=== PATIENT | male | born 1995 | race Caucasian/White ===

== ENCOUNTER 2017-04-05 11:04 | Emergency (ER) | payer BC ==
[~2017-04-05] VITALS: Ht 170.2 cm; Wt 57.2 kg
[2017-04-05 11:16] VITALS: BP 127/69; PULSE 102; RESP 18; TEMP 98.9; O2SAT 98
--- NOTE | 2017-04-05 11:31 | NUR ---
Patient to ER bed 03 to gown for evaluation. Side rails up. Report given to Travis/Kaylin RODRIGUEZ
--- NOTE | 2017-04-05 11:35 | NUR ---
Pt states he came to ER "because the dialysis people said the fistula might be infected". Fistula noted to R upper arm. slightly dark red skin coloration noted on fistula, thrill palpated. Skin non-intact on lower bump of fistula. No active bleeding noted on fistula site. Pt denies any other complaints.
--- NOTE | 2017-04-05 11:36 | NUR ---
ER Dr. Sanchez at bedside examining patient.
[2017-04-05 11:49] LABS: BASOPHILS % (AUTO) 0.4 % (0.0-2.0); CALCIUM 9.1 mg/dL (8.4-11.0); CREATININE 7.44 mg/dL (0.55-1.30); EOSINOPHILS # (AUTO) 0.2 K/uL (0.0-0.4); EOSINOPHILS % (AUTO) 2.7 % (0.0-4.0); HEMATOCRIT 23.9 % (36-54); LYMPHOCYTES # (AUTO) 0.9 K/uL (1.0-5.5); LYMPHOCYTES % (AUTO) 13.7 % (20.5-51.5); MEAN CORPUSCULAR HEMOGLOBIN 32 pg (27-31); MEAN CORPUSCULAR HGB CONC 34 % (32-36); MEAN CORPUSCULAR VOLUME 96 fL (79.0-98.0); MONOCYTES # (AUTO) 0.7 K/uL (0.0-1.0); MONOCYTES % (AUTO) 11.7 % (1.7-9.3); NEUTROPHILS # (AUTO) 4.4 K/uL (1.8-7.7); NEUTROPHILS % (AUTO) 71.5 % (40.0-70.0); PLATELET COUNT (AUTO) 260 K/uL (130-430); POTASSIUM 4.1 mmol/L (3.5-5.1); RED CELL DISTRIBUTION WIDTH 15.5 % (9.0-15.0); WHITE BLOOD COUNT (AUTO) 6.2 K/uL (4.8-10.8)
[2017-04-05 11:52] LABS: INR 1.1 (0.80-1.20); PROTHROMBIN TIME 12.2 SECS (9.5-12.5)
[2017-04-05 11:54] LABS: ALBUMIN 4.1 g/dL (3.4-4.8); TOTAL BILIRUBIN 0.6 mg/dL (0.0-1.0); TOTAL PROTEIN, SERUM 7.5 g/dL (6.4-8.3)
[2017-04-05] MEDS ORDERED: PIPERACILLIN/TAZO 3.375 GM in NS 50 ML IV ONE (12:15)
[2017-04-05] MEDS ORDERED: PIPERACILLIN/TAZOBACTAM 3.375 GM/VIAL (ZOSYN) IV ONE (12:53)
--- NOTE | 2017-04-05 13:00 | NUR ---
Pt stable, no signs of distress noted
--- NOTE | 2017-04-05 15:02 | NUR ---
pt stable, no signs of distress noted
--- NOTE | 2017-04-05 17:00 | NUR ---
pt stable, no signs of distress noted.
--- NOTE | 2017-04-05 18:00 | NUR ---
Pt not allowed to be admitted to floor. Med-surg stated ambulance will not arrive until 1900. Pt stable, no signs of distress noted
[2017-04-05] MEDS ORDERED: CARV25TA55 PO (18:28)
[2017-04-05] MEDS ORDERED: NEPH PO (18:28)
[2017-04-05] MEDS ORDERED: LON10 PO (18:28)
[2017-04-05] MEDS ORDERED: VORT20TA PO (18:28)
[2017-04-05] MEDS ORDERED: LISI-600 PO (18:28)
[2017-04-05] MEDS ORDERED: SODI15OR3 PO (18:28)
[2017-04-05] MEDS ORDERED: LACT10SO66 PO (18:28)
[2017-04-05] MEDS ORDERED: HYDR-4039 PO (18:28)
[2017-04-05] MEDS ORDERED: CLON1PAT10 TD (18:28)
[2017-04-05] MEDS ORDERED: [UNRECOGNIZED DRUG - OTHER] (18:28)
--- NOTE | 2017-04-05 19:00 | NUR ---
ambulance for transfer has not arrived
--- NOTE | 2017-04-05 19:00 | NUR ---
pt stable, no signs of distress noted
--- NOTE | 2017-04-05 19:44 | NUR ---
report given to TOD potts before transfer to other facility
--- NOTE | 2017-04-05 19:58 | NUR ---
Patient to be transferred to [facility]. Is being transferred due to higher level of care. Receiving facility has accepting physician and available space. ER physician has signed transfer form. Patient or responsible constitution party has agreed to transfer and signed form. Patient belongings inventoried and will be sent with patient. Copy of nursing notes, lab reports, EKG, Physicians Orders to be sent with patient. Report called to MICHAEL Moran at receiving facility. Receiving physician is Dr. Goode. [facility] ambulance service has been called for transfer. TOD Bailey at bedside to transfer pt.
[2017-04-05 20:00] VITALS: BP 143/68; PULSE 85; RESP 16; TEMP 99; O2SAT 98
== END 2017-04-05 19:58 | disposition short-term general hospital (02) ==
LOC: SED 11:04 → SMU 17:50 → UNDOADMIN 17:50 → SMU 19:58
DX: L03.113 Cellulitis of right upper limb (principal); Z88.2 Allergy status to sulfonamides; Z88.8 Allergy status to other drugs, medicaments and biological substances; I10 Essential (primary) hypertension; N28.9 Disorder of kidney and ureter, unspecified; Z99.2 Dependence on renal dialysis
CPT/HCPCS: 36415; 80053; 83605; 85025; 85610; 85730; 87040; 93005; 93971; 96365; 99285; J2543

== ENCOUNTER 2019-10-14 05:40 | Emergency (ER) | payer OTHER, BC ==
[~2019-10-14 05:40] MED LIST: CARV25TA55 PO; CLON1PAT10 TD; HYDR-4039 PO; LACT10SO66 PO; LISI-600 PO; LON10 PO; NEPH PO; SODI15OR3 PO; VORT20TA PO; [UNRECOGNIZED DRUG - OTHER]
[2019-10-14] MEDS ORDERED: hydrALAZINE HCL 20 MG/ML VIAL ONE (06:20)
[2019-10-14] MEDS ORDERED: cloNIDine HCL 0.1 MG TABLET ONE (06:20)
[2019-11-04 10:09] LABS: CALCIUM 8.7 mg/dL (8.4-11.0); CREATININE 10.45 mg/dL (0.55-1.30); TOTAL BILIRUBIN 0.6 mg/dL (0.0-1.0)
[2019-11-04 10:10] LABS: ALBUMIN 4.3 g/dL (3.4-4.8)
[2019-11-04 10:11] LABS: WHITE BLOOD COUNT (AUTO) 5.1 K/uL (4.8-10.8)
[2019-11-04 10:12] LABS: BASOPHILS % (AUTO) 1.3 % (0.0-2.0); EOSINOPHILS % (AUTO) 4.3 % (0.0-4.0); HEMATOCRIT 35.4 % (36-54); HEMOGLOBIN 11.7 g/dL (14.0-18.0); LYMPHOCYTES % (AUTO) 19.8 % (20.5-51.5); MEAN CORPUSCULAR HEMOGLOBIN 31 pg (27-31); MEAN CORPUSCULAR HGB CONC 33 % (32-36); MEAN CORPUSCULAR VOLUME 94 fL (79.0-98.0); MONOCYTES % (AUTO) 12.8 % (1.7-9.3); PLATELET COUNT (AUTO) 160 K/uL (130-430); RED BLOOD CELL COUNT(AUTO) 3.78 MIL/uL (4.2-6.2); RED CELL DISTRIBUTION WIDTH 14.5 % (9.0-15.0)
== END 2019-10-14 08:16 | disposition home or self-care (01) ==
LOC: SED 05:40
DX: R07.9 Chest pain, unspecified (principal); I10 Essential (primary) hypertension; R00.2 Palpitations; I12.0 Hypertensive chronic kidney disease with stage 5 chronic kidney disease or end stage renal disease; N18.6 End stage renal disease; Z99.2 Dependence on renal dialysis
CPT/HCPCS: 36415; 71045; 80053; 83605; 84484; 85025; 85379; 93005; 96374; 99284; J0360